=== PATIENT | male | born 1990 | race African-American/Black ===

== ENCOUNTER 2016-11-17 22:57 | Emergency (ER) | payer SELFPAY ==
[~2016-11-17] VITALS: Ht 185.4 cm; Wt 66.7 kg
[2016-11-17 23:49] VITALS: BP 119/69
[2016-11-18 00:02] VITALS: BP 108/74
--- NOTE | 2016-11-20 08:22 | Emergency Room Report ---
History of Present Illness General Chief Complaint: Medical Clearance Source: Patient Present Illness HPI Patient is brought in by police department for medical clearance Patient had initially complained shortness of breath at this time feels that he is much better patient does report recent marijuana smoke Denies any headache denies any chest pain Denies any back or flank pain Allergies: Coded Allergies: No Known Allergies (Unverified , 11/17/16) Patient History Past Medical History: see triage record Pertinent Family History: none Reviewed Nursing Documentation: PMH: Agreed, PSxH: Agreed Nursing Documentation-PMH Past Medical History: No Stated History Review of Systems All Other Systems: negative except mentioned in HPI Physical Exam Vital Signs Date Time Temp Pulse Resp B/P (MAP) Pulse Ox O2 Delivery O2 Flow Rate FiO2 11/17/16 23:06 98.4 79 18 119/69 98 Room Air Sp02 EP Interpretation: reviewed, normal General Appearance: well appearing, no apparent distress Head: normocephalic, atraumatic Eyes: bilateral eye PERRL, bilateral eye EOMI ENT: hearing grossly normal, normal pharynx, TMs + canals normal, uvula midline Neck: full range of motion, supple, no meningismus, no bony tend Respiratory: lungs clear, normal breath sounds, no rhonchi, no respiratory distress, no retraction, no accessory muscle use Cardiovascular #1: normal peripheral pulses, regular rate, rhythm, no edema, no gallop, no JVD, no murmur Gastrointestinal: normal bowel sounds, non tender, soft, no mass, no organomegaly, non-distended, no guarding, no hernia, no pulsatile mass, no rebound Genitourinary: no CVA tenderness Musculoskeletal: normal inspection Neurologic: oriented x3, responsive, community advocate III-XII nml as tested, motor strength/ tone normal, sensory intact Psychiatric: mood/affect normal Skin: normal color, no rash, warm/dry, palpation normal Lymphatic: normal inspection, no adenopathy Medical Decision Making Diagnostic Impression: Primary Impression: ok to book Additional Impression: medical clearance ER Course Patient has a fairly benign medical evaluation Lungs sounds are clear Patient's also asymptomatic at this time and appropriate for longterm M.D. followup closely Last Vital Signs Date Time Temp Pulse Resp B/P (MAP) Pulse Ox O2 Delivery O2 Flow Rate FiO2 11/18/16 00:02 68 18 108/74 100 Room Air 11/17/16 23:49 98.4 Status: improved Disposition: D/C TO LAW ENFORCEMENT IN [facility] Condition: Stable Referrals: NOT CHOSEN IPA/MD,REFERRING (PCP) Departure Forms: Residential Clearance Patient Instructions: Shortness of Breath, [id number] Additional Instructions: Followup ravindra Ponce in the morning as needed CATALINO BOYER D.O. Nov 20, 2016 08:22
== END 2016-11-18 00:02 ==
LOC: EMR 23:24
DX: R06.02 Shortness of breath (principal); Z02.89 Encounter for other administrative examinations
CPT/HCPCS: 99283